=== PATIENT | female | born 1985 | race Caucasian/White ===

== ENCOUNTER 2017-03-29 14:15 | Inpatient (IN) | payer OTHER ==
[2017-03-29 15:57] VITALS: BMI 23.5
--- NOTE | 2017-03-29 17:22 | HP ---
COWS - Scale Resting Pulse: 1= [place] 81-100 Sweatin= Chills/Flushing Restless Observation: 3= Extraneous Movement Pupil Size: 0= Normal to Room Light Bone or Joint Aches: 2= Severe Diffuse Aches Runny Nose/ Eye Tearin= Runny Nose/Eyes GI Upset > 30mins: 1= Stomach Cramp Tremor Observation: 2= Slight Tremor Visible Yawning Observation: 0= None Anxiety or Irritability: 2=Irritable/Anxious Goose Flesh Skin: 0=Smooth Skin COWS Score: 14 Admission [facility] - HPI Chief Complaint: WITHDRAWAL SX Allergies/Adverse Reactions: Allergies Allergy/AdvReac Type Severity Reaction Status Date / Time No Known Allergies Allergy Verified 03/29/17 17:18 History of Present Illness: 31 YEARS OLD FEMALE WITH LONG HISTORY OF OPIUM NICOTINE DEPENDENCE HAS DEPRESSION IS ADMITTED TO DETOX Exam Limitations: No Limitations - Ebola screening Have you traveled outside of the country in the last 21 days: No Have you had contact with anyone from an Ebola affected area: No Have you been sick,other than usual withdrawal symptoms: No Do you have a fever: No - Review of Systems Constitutional: Changes in sleep, Weight Stable EENT: reports: No Symptoms Reported Respiratory: reports: No Symptoms reported Cardiac: reports: No Symptoms Reported GI: reports: Poor Fluid Intake, Abdominal cramping : reports: No Symptoms Reported Musculoskeletal: reports: Back Pain, Joint Pain, Muscle Pain, Neck Pain Integumentary: reports: Change in Color (IV HEROIN BOTH ARMS), Dryness Neuro: reports: Tremors Endocrine: reports: No Symptoms Reported Hematology: reports: No Symptoms Reported Psychiatric: reports: Judgement Intact, Orientated x3, Depressed Other Systems: Reviewed and Negative Patient History - Patient Medical History Hx Anemia: No Hx Asthma: No Hx Chronic Obstructive Pulmonary Disease (COPD): No Hx Cancer: No Hx Cardiac Disorders: No Hx Congestive Heart Failure: No Hx Hypertension: No Hx Hypercholesterolemia: No Hx Pacemaker: No HX Cerebrovascular Accident: No Hx Seizures: No Hx Dementia: No Hx Diabetes: No Hx Gastrointestinal Disorders: No Hx Liver Disease: No Hx Genitourinary Disorders: No Hx Sexually Transmitted Disorders: No Hx Renal Disease (ESRD): No Hx Thyroid Disease: No Hx Human Immunodeficiency Virus (HIV): No Hx Hepatitis C: No Hx Depression: Yes Hx Suicide Attempt: No Hx Bipolar Disorder: No Hx Schizophrenia: No - Patient Surgical History Past Surgical History: No - PPD History Previous Implant?: Yes Documented Results: Negative w/o proof Implanted On Prior [facility] Admission?: No PPD to be Administered?: Yes - Reproductive History Patient is a Female of Child Bearing Age (11 -55 yrs old): Yes Last Menstrual Period: 03/15/17 Patient : No - Smoking Cessation Smoking history: Current every day smoker Have you smoked in the past 12 months: Yes Aproximately how many cigarettes per day: 10 Cigars Per Day: 0 Hx Chewing Tobacco Use: No Initiated information on smoking cessation: Yes 'Breaking Loose' booklet given: 03/29/17 - Substance & Tx. History Hx Alcohol Use: No Hx Substance Use: Yes Substance Use Type: Heroin, Marijuana Hx Substance Use Treatment: Yes (01/2017 [facility]) - Substances Abused Heroin Route: Injection Frequency: Daily Amount used: 20 BAGS Age of first use: 13 Date of Last Use: 03/28/17 Marijuana/Hashish Route: Smoking Frequency: 1-2 times per week Amount used: 1 JOINT Age of first use: 11 Date of Last Use: 03/28/17 Family Disease History - Family Disease History Family History: Unremarkable Family Disease History: Other: Brother (NO BROTHER) Admission Physical Exam S - Vital Signs Vital Signs: Vital Signs - 24 hr 03/29/17 15:50 Temperature 98.4 F Pulse Rate 90 Respiratory 18 Rate Blood Pressure 114/78 - Physical General Appearance: Yes: Appropriately Dressed, Mild Distress, Thin, Tremorous, Irritable, Sweating, Anxious HEENTM: Yes: Hearing grossly Normal, Normal ENT Inspection, Normocephalic, Normal Voice Respiratory: Yes: Chest Non-Tender, No Respiratory Distress, No Accessory Muscle Use, Hyperresonant (RIGHT LOWER), Inspiration Neck: Yes: Supple, Trachea in good position Breast: Yes: Breasts Symetrical Cardiology: Yes: Regular Rhythm, S1, S2, Tachycardia Abdominal: Yes: Normal Bowel Sounds, Non Tender, Soft Genitourinary: Yes: Within Normal Limits Back: Yes: Normal Inspection Musculoskeletal: Yes: full range of Motion, Gait Steady, Back pain, Muscle Pain Extremities: Yes: Normal Range of Motion, Non-Tender, Tremors Neurological: Yes: Fully Oriented, Alert, Motor Strength 5/5, Normal Response, Depressed Affect Integumentary: Yes: Warm, Track Law Lymphatic: Yes: Within Normal Limits - Diagnostic (1) Opioid dependence with withdrawal Current Visit: Yes Status: Acute (2) Cannabis dependence, uncomplicated Current Visit: Yes Status: Chronic (3) Nicotine dependence Current Visit: Yes Status: Acute Qualifiers: Nicotine product type: cigarettes Substance use status: in withdrawal Qualified Code(s): F17.213 - Nicotine dependence, cigarettes, with withdrawal (4) Depression (emotion) Current Visit: Yes Status: Suspected Qualifiers: Depression Type: dysthymia Qualified Code(s): F34.1 - Dysthymic disorder Cleared for Admission [facility] - Detox or Rehab [facility] Level of Care: Medically Managed Detox Regimen/Protocol: Methadone [facility] Breath Alcohol Content Breath Alcohol Content: 0 Urine Pregancy Test - Result Urine Test Results: Negative- NO Line Present Urine Drug Screen - Results Drug Screen Negative: No Urine Drug Screen Results: THC-Marijuana, OPI-Opiates
[2017-03-29] MEDS ORDERED: P-EPHED 60MG/TRIPROLIDI 2.5MG TABLET PO PRN (17:26)
[2017-03-29] MEDS ORDERED: IBUPROFEN 400 MG TABLET (FP) PO PRN (17:26)
[2017-03-29] MEDS ORDERED: NICOTINE POLACRILEX 2 MG GUM BC PRN (17:26)
[2017-03-29] MEDS ORDERED: guaiFENesin/D-METHORPHAN HB 10 ML UNIT-DOSE CUPS PO PRN (17:26)
[2017-03-29] MEDS ORDERED: MAG HYDROX/AL HYDROX/SIMETH 30 ML UNIT-DOSE CUP PO PRN (17:26)
[2017-03-29] MEDS ORDERED: ACETAMINOPHEN 325 MG TABLET (FP) PO PRN (17:26)
[2017-03-29] MEDS ORDERED: LOPERAMIDE HCL 2 MG CAPSULE PO PRN (17:26)
[2017-03-29] MEDS ORDERED: MENTHOL/PHENOL 1 EACH UD MM PRN (17:26)
[2017-03-29] MEDS ORDERED: MAGNESIUM CITRATE 300 ML BOTTLE PO PRN (17:26)
[2017-03-29] MEDS ORDERED: MAGNESIUM HYDROX 2400MG/30ML ORAL SUSPENSION 30 ML CUP PO PRN (17:26)
--- NOTE | 2017-03-29 17:47 | HP ---
COWS - Scale Resting Pulse: 1= [place] 81-100 Sweatin= Chills/Flushing Restless Observation: 3= Extraneous Movement Pupil Size: 0= Normal to Room Light Bone or Joint Aches: 2= Severe Diffuse Aches Runny Nose/ Eye Tearin= Runny Nose/Eyes GI Upset > 30mins: 1= Stomach Cramp Tremor Observation: 2= Slight Tremor Visible Yawning Observation: 0= None Anxiety or Irritability: 2=Irritable/Anxious Goose Flesh Skin: 0=Smooth Skin COWS Score: 14 CIWA Score - CIWA Score Nausea/Vomitin-Mild Nausea/No Vomiting Muscle Tremors: 4-Moderate,w/Arms Extend Anxiety: 4-Mod. Anxious/Guarded Agitation: 4-Moderately Restless Paroxysmal Sweats: 1-Minimal Palms Moist Orientation: 0-Oriented Tacttile Disturbances: 0-None Auditory Disturbances: 0-None Visual Disturbances: 0-None Headache: 0-None Present CIWA-Ar Total Score: [address] [facility] - HPI Allergies/Adverse Reactions: Allergies Allergy/AdvReac Type Severity Reaction Status Date / Time No Known Allergies Allergy Verified 03/29/17 17:18 - Ebola screening Have you traveled outside of the country in the last 21 days: No Have you had contact with anyone from an Ebola affected area: No Have you been sick,other than usual withdrawal symptoms: No Do you have a fever: No Patient History - Patient Medical History Hx Anemia: No Hx Asthma: No Hx Chronic Obstructive Pulmonary Disease (COPD): No Hx Cancer: No Hx Cardiac Disorders: No Hx Congestive Heart Failure: No Hx Hypertension: No Hx Hypercholesterolemia: No Hx Pacemaker: No HX Cerebrovascular Accident: No Hx Seizures: No Hx Dementia: No Hx Diabetes: No Hx Gastrointestinal Disorders: No Hx Liver Disease: No Hx Genitourinary Disorders: No Hx Sexually Transmitted Disorders: No Hx Renal Disease (ESRD): No Hx Thyroid Disease: No Hx Human Immunodeficiency Virus (HIV): No Hx Hepatitis C: No Hx Depression: Yes Hx Suicide Attempt: No Hx Bipolar Disorder: No Hx Schizophrenia: No - Patient Surgical History Past Surgical History: No - PPD History Previous Implant?: Yes Documented Results: Negative w/o proof Implanted On Prior [facility] Admission?: No - Reproductive History Last Menstrual Period: 03/15/17 Patient : No - Smoking Cessation Smoking history: Current every day smoker Have you smoked in the past 12 months: Yes Aproximately how many cigarettes per day: 10 Cigars Per Day: 0 Hx Chewing Tobacco Use: No Initiated information on smoking cessation: Yes 'Breaking Loose' booklet given: 03/29/17 - Substances Abused Heroin Route: Injection Frequency: Daily Amount used: 20 BAGS Age of first use: 13 Date of Last Use: 03/28/17 Marijuana/Hashish Route: Smoking Frequency: 1-2 times per week Amount used: 1 JOINT Age of first use: 11 Date of Last Use: 03/28/17 Alcohol Route: Oral Frequency: Daily Amount used: 6pk beer/ 1 bottle of wine Date of Last Use: 03/29/17 Family Disease History - Family Disease History Family Disease History: Other: Brother (NO BROTHER) Admission Physical Exam [facility] - Vital Signs Vital Signs: Vital Signs - 24 hr 03/29/17 15:50 Temperature 98.4 F Pulse Rate 90 Respiratory 18 Rate Blood Pressure 114/78 - Diagnostic (1) Opioid dependence with withdrawal Current Visit: Yes Status: Acute (2) Cannabis dependence, uncomplicated Current Visit: Yes Status: Chronic (3) Nicotine dependence Current Visit: Yes Status: Acute Qualifiers: Nicotine product type: cigarettes Substance use status: in withdrawal Qualified Code(s): F17.213 - Nicotine dependence, cigarettes, with withdrawal (4) Depression (emotion) Current Visit: Yes Status: Suspected Qualifiers: Depression Type: dysthymia Qualified Code(s): F34.1 - Dysthymic disorder Cleared for Admission [facility] - Detox or Rehab [facility] Level of Care: Medically Managed Detox Regimen/Protocol: Methadone/Valium [facility] Breath Alcohol Content Breath Alcohol Content: 0 Urine Pregancy Test - Result Urine Test Results: Negative- NO Line Present Urine Drug Screen - Results Drug Screen Negative: No Urine Drug Screen Results: THC-Marijuana, OPI-Opiates
[2017-03-29] MEDS ORDERED: BACITRACIN 0.9 GM PACKET TP ONE (18:15)
[2017-03-29] MEDS ORDERED: diazePAM 5 MG TABLET PO ONE (18:15)
[2017-03-29] MEDS ORDERED: METHADONE HCL 10 MG TABLET (FOR DETOX USE ONLY) PO ONE ×2 (18:15→23:00)
[2017-03-29] MEDS: THIAMINE HCL 100 MG TABLET (FP) PO SCH (22:24)
[2017-03-29] MEDS: GABAPENTIN 100 MG CAPSULE (FP) PO PRN (22:24)
[2017-03-29] MEDS: diazePAM 5 MG TABLET PO SCH (22:24)
[2017-03-29] MEDS: BACLOFEN 10 MG TABLET (FP) PO PRN (22:24)
[2017-03-30 01:58] LABS: URINE APPEARANCE SLCLOUDY; URINE BILIRUBIN NEGATIVE (NEGATIVE); URINE BLOOD 2+ (NEGATIVE); URINE COLOR YELLOW; URINE GLUCOSE (UA) NEGATIVE (NEGATIVE); URINE KETONE NEGATIVE (NEGATIVE); URINE NITRITE NEGATIVE (NEGATIVE); URINE PROTEIN NEGATIVE (NEGATIVE); URINE UROBILINOGEN NEGATIVE mg/dL (0.2-1.0)
[2017-03-30 02:15] LABS: URINE BACTERIA RARE /hpf (NONE SEEN); URINE MUCUS RARE; URINE RBC 14 /hpf (0-3); URINE WBC 14 /hpf (3-5)
[2017-03-30] MEDS: diazePAM 5 MG TABLET PO SCH ×3 (05:27→22:22)
[2017-03-30 09:58] LABS: MCH 29.4 pg (25.7-33.7); MCHC 33.7 g/dl (32.0-36.0); MEAN CELL VOLUME 87.3 fl (80-96); MEAN PLT VOLUME 8.3 fl (7.5-11.1); PLATELET COUNT 233 K/MM3 (134-434); RDW 13.3 % (11.6-15.6); WHITE BLOOD COUNT 6.9 K/mm3 (4.0-10.0)
[2017-03-30] MEDS ORDERED: METHADONE HCL 10 MG TABLET (FOR DETOX USE ONLY) PO ONE (10:00)
[2017-03-30] MEDS: PRENATAL VITAMINS W/ FOLIC ACID TABLET (FP) PO SCH (10:33)
[2017-03-30] MEDS: diazePAM 5 MG TABLET PO PRN ×2 (10:34→19:09)
[2017-03-30] MEDS: NICOTINE 14 MG/24 HOURS TOPICAL PATCH TD SCH (10:35)
[2017-03-30 10:51] LABS: ALBUMIN 3.3 g/dl (3.4-5.0); ALK PHOS 53 U/L (45-117); ANION GAP 6 (8-16); BILIRUBIN,TOTAL 0.8 mg/dL (0.2-1.0); CALCIUM 8.2 mg/dL (8.5-10.1); CO2 28 mmol/L (21-32); CREATININE 0.7 mg/dL (0.55-1.02); GLUCOSE,RANDOM 98 mg/dL (74-106); SGOT/AST 14 U/L (15-37); SGPT/ALT 27 U/L (12-78); TOT PROT 6.2 g/dl (6.4-8.2)
[2017-03-30 11:28] LABS: URINE LEUK ESTERASE 1+ (NEGATIVE)
[2017-03-30] MEDS ORDERED: FLU VACCINE QUAD 60 MCG/0.5 ML (MDV 17-18) IM ONE (12:00)
[2017-03-30 12:34] LABS: HIV 1 & 2 AB NEGATIVE; HIV 1 AGp24 NEGATIVE
[2017-03-30] MEDS: GABAPENTIN 100 MG CAPSULE (FP) PO PRN ×2 (14:05→22:21)
--- NOTE | 2017-03-30 14:35 | PN ---
S CIWA - CIWA Score Nausea/Vomitin S COWS - Scale Resting Pulse: 0= [place] 80 or Below Sweatin= Chills/Flushing Restless Observation: 3= Extraneous Movement Pupil Size: 1= Pupils >than Normal Bone or Joint Aches: 2= Severe Diffuse Aches Runny Nose/ Eye Tearin= Runny Nose/Eyes GI Upset > 30mins: 2= Nausea/Diarrhea Tremor Observation of Outstretched Hands: 2= Slight Tremor Visible Yawning Observation: 1= 1-2x During Session Anxiety or Irritability: 2=Irritable/Anxious Goose Flesh Skin: 0=Smooth Skin COWS Score: 16 S Progress Note (SOAP) Subjective: alert,irritable,anxious,interrupted sleep,pain in the body and back,tremor Objective: 03/30/17 14:33 Vital Signs Temperature 98.6 F 03/30/17 11:38 Pulse Rate 78 03/30/17 11:38 Respiratory Rate 18 03/30/17 11:38 Blood Pressure 113/69 03/30/17 11:38 O2 Sat by Pulse Oximetry (%) ekg nsr,normal ecg Laboratory Last Values WBC 6.9 K/mm3 (4.0-10.0) 03/30/17 07:45 RBC 4.29 M/mm3 (3.60-5.2) 03/30/17 07:45 Hgb 12.6 GM/dL (10.7-15.3) 03/30/17 07:45 Hct 37.5 % (32.4-45.2) 03/30/17 07:45 MCV 87.3 fl (80-96) 03/30/17 07:45 MCH 29.4 pg (25.7-33.7) 03/30/17 07:45 MCHC 33.7 g/dl (32.0-36.0) 03/30/17 07:45 RDW 13.3 % (11.6-15.6) 03/30/17 07:45 Plt Count 233 K/MM3 (134-434) 03/30/17 07:45 MPV 8.3 fl (7.5-11.1) 03/30/17 07:45 Manual Slide Review No Result Required. 03/30/17 07:45 Sodium 142 mmol/L (136-145) 03/30/17 07:45 Potassium 4.0 mmol/L (3.5-5.1) 03/30/17 07:45 Chloride 108 mmol/L (98-107) H 03/30/17 07:45 Carbon Dioxide 28 mmol/L (21-32) 03/30/17 07:45 Anion Gap 6 (8-16) L 03/30/17 07:45 BUN 11 mg/dL (7-18) 03/30/17 07:45 Creatinine 0.7 mg/dL (0.55-1.02) 03/30/17 07:45 Creat Clearance w eGFR > 60 (>60) 03/30/17 07:45 Random Glucose 98 mg/dL (74-106) 03/30/17 07:45 Calcium 8.2 mg/dL (8.5-10.1) L 03/30/17 07:45 Total Bilirubin 0.8 mg/dL (0.2-1.0) 03/30/17 07:45 AST 14 U/L (15-37) L 03/30/17 07:45 ALT 27 U/L (12-78) 03/30/17 07:45 Alkaline Phosphatase 53 U/L (45-117) 03/30/17 07:45 Total Protein 6.2 g/dl (6.4-8.2) L 03/30/17 07:45 Albumin 3.3 g/dl (3.4-5.0) L 03/30/17 07:45 Urine Color Yellow 03/29/17 21:56 Urine Appearance Slcloudy 03/29/17 21:56 Urine pH 5.0 (5.0-8.0) 03/29/17 21:56 Ur Specific [place] 1.016 (1.001-1.035) 03/29/17 21:56 Urine Protein Negative (NEGATIVE) 03/29/17 21:56 Urine Glucose (UA) Negative (NEGATIVE) 03/29/17 21:56 Urine Ketones Negative (NEGATIVE) 03/29/17 21:56 Urine Blood 2+ (NEGATIVE) H 03/29/17 21:56 Urine Nitrite Negative (NEGATIVE) 03/29/17 21:56 Urine Bilirubin Negative (NEGATIVE) 03/29/17 21:56 Urine Urobilinogen Negative mg/dL (0.2-1.0) 03/29/17 21:56 Ur Leukocyte Esterase 1+ (NEGATIVE) H 03/29/17 21:56 Urine WBC (Auto) 14 /hpf (3-5) 03/29/17 21:56 Urine RBC (Auto) 14 /hpf (0-3) 03/29/17 21:56 Ur Epithelial Cells Moderate /HPF (FEW) 03/29/17 21:56 Urine Bacteria Rare /hpf (NONE SEEN) 03/29/17 21:56 Urine Mucus Rare 03/29/17 21:56 RPR Titer Nonreactive (NONREACTIVE) 03/30/17 07:45 HIV 1&2 Antibody Screen Negative 03/30/17 07:45 HIV P24 Antigen Negative 03/30/17 07:45 Assessment: 03/30/17 14:34 withdrawal symptom Plan: continue detox,repeat ua
--- NOTE | 2017-03-30 14:38 | CONSULT ---
[facility] Psychiatric Consult - Data Date of interview: 03/30/17 Admission source: [facility] Identifying data: Readmission to [facility] for this 31 y/o Caucasiuan female seeking detox treatment on for heroin and cannabis dependence.Patient is single,a mother of one,domiciled,unemployed and supported on food stamps. Substance Abuse History: Confirmed by patient in this session.See [facility] report for details : Smoking history: Current every day smoker. Have you smoked in the past 12 months: Yes. Aproximately how many cigarettes per day: 10. Cigars Per Day: 0. Hx Chewing Tobacco Use: No. Initiated information on smoking cessation: Yes. 'Breaking Loose' booklet given: 03/29/17. - Substance & Tx. History. Hx Alcohol Use: No. Hx Substance Use: Yes. Substance Use Type: Heroin, Marijuana. Hx Substance Use Treatment: Yes (01/2017 [facility]). - Substances Abused. Heroin. Route: Injection. Frequency: Daily. Amount used: 20 BAGS. Age of first use: 13. Date of Last Use: 03/28/17. Marijuana /Hashish. Route: Smoking. Frequency: 1-2 times per week. Amount used: 1 JOINT. Age of first use: 11. Date of Last Use: 03/28/17 Medical History: Patient endorses good general health. Psychiatric History: No history of psychiatric hospitalizations.Patient admits to the diagnosis of MDD and treatment with prozac 60 mg/day.Sees a psychiatrist at [facility] in [facility].Last took her medication two days ago as per self- report.No reported history of suicide attempts. Physical/Sexual Abuse/Trauma History: Patient denies history of abuse. Additional Comment: Urine Drug Screen Results: THC-Marijuana, OPI-Opiates.Noted. Mental Status Exam - Mental Status Exam Alert and Oriented to: Time, Place, Person Cognitive Function: Good Patient Appearance: Well Groomed Mood: Hopeful, Euthymic Affect: Appropriate, Normal Range Patient Behavior: Appropriate, Cooperative Speech Pattern: Clear Voice Loudness: Normal Thought Process: Intact, Goal Oriented Thought Disorder: Not Present Hallucinations: Denies Suicidal Ideation: Denies Homicidal Ideation: Denies Insight/Judgement: Poor Sleep: Well Appetite: Good Muscle strength/Tone: Normal Gait/Station: Normal Psychiatric Findings - Problem List ([place] 1, 2,3) (1) Opioid dependence with withdrawal Current Visit: Yes Status: Acute (2) Cannabis dependence, uncomplicated Current Visit: Yes Status: Acute (3) Nicotine dependence Current Visit: Yes Status: Acute Qualifiers: Nicotine product type: cigarettes Substance use status: in withdrawal Qualified Code(s): F17.213 - Nicotine dependence, cigarettes, with withdrawal (4) MDD (major depressive disorder) Current Visit: Yes Status: Chronic Comment: Self-report.On Prozac.On going OPD care. - Initial Treatment Plan Initial Treatment Plan: Psychoeducation.Detoxification.Support.Prozac 60 mg po daily.Side effects/benefits are discussed with the patient.Ms Andres is in agreement with plan of care.[facility]. Observation.
[2017-03-30] MEDS: BACITRACIN 0.9 GM PACKET TP SCH ×2 (15:34→22:22)
[2017-03-30] MEDS: THIAMINE HCL 100 MG TABLET (FP) PO SCH (22:21)
[2017-03-30] MEDS: BACLOFEN 10 MG TABLET (FP) PO PRN (22:21)
[2017-03-31] MEDS ORDERED: METHADONE HCL 5 MG TABLET (FOR DETOX USE ONLY) PO ONE (10:00)
[2017-03-31 10:14] LABS: URINE APPEARANCE SLCLOUDY; URINE BILIRUBIN NEGATIVE (NEGATIVE); URINE BLOOD NEGATIVE (NEGATIVE); URINE COLOR LTYELLOW; URINE GLUCOSE (UA) NEGATIVE (NEGATIVE); URINE KETONE NEGATIVE (NEGATIVE); URINE NITRITE NEGATIVE (NEGATIVE); URINE PROTEIN NEGATIVE (NEGATIVE); URINE UROBILINOGEN NEGATIVE mg/dL (0.2-1.0)
[2017-03-31] MEDS: BACITRACIN 0.9 GM PACKET TP SCH ×2 (10:40→23:26)
[2017-03-31] MEDS: PRENATAL VITAMINS W/ FOLIC ACID TABLET (FP) PO SCH (10:41)
[2017-03-31] MEDS: FLUoxetine HCL 20 MG CAPSULE (FP) PO SCH (10:41)
[2017-03-31] MEDS: diazePAM 5 MG TABLET PO SCH ×2 (10:41→22:25)
[2017-03-31] MEDS: NICOTINE 14 MG/24 HOURS TOPICAL PATCH TD SCH (10:42)
[2017-03-31] MEDS: BACLOFEN 10 MG TABLET (FP) PO PRN (10:43)
--- NOTE | 2017-03-31 11:01 | PN ---
[facility] COWS - Scale Resting Pulse: 1= [place] 81-100 Sweatin= Chills/Flushing Restless Observation: 3= Extraneous Movement Pupil Size: 1= Pupils >than Normal Bone or Joint Aches: 2= Severe Diffuse Aches Runny Nose/ Eye Tearin= Runny Nose/Eyes GI Upset > 30mins: 2= Nausea/Diarrhea Tremor Observation of Outstretched Hands: 2= Slight Tremor Visible Yawning Observation: 1= 1-2x During Session Anxiety or Irritability: 2=Irritable/Anxious Goose Flesh Skin: 0=Smooth Skin COWS Score: 17 BHS Progress Note (SOAP) Subjective: alert,irritable,anxious,interrupted sleep,tremor,pain in the body Objective: 03/31/17 11:01 Vital Signs Temperature 98.4 F 03/31/17 09:46 Pulse Rate 89 03/31/17 09:46 Respiratory Rate 16 03/31/17 09:46 Blood Pressure 111/65 03/31/17 09:46 O2 Sat by Pulse Oximetry (%) 03/31/17 11:02 Laboratory Results - last 24 hr 03/29/17 03/30/17 03/30/17 21:56 07:45 07:45 Manual Slide Review No Result Required. Urine Color Urine Appearance Urine pH Ur Specific [place] Urine Protein Urine Glucose (UA) Urine Ketones Urine Blood Urine Nitrite Urine Bilirubin Urine Urobilinogen Ur Leukocyte Esterase 1+ H RPR Titer Nonreactive HIV 1&2 Antibody Screen HIV P24 Antigen 03/30/17 03/31/17 07:45 08:40 Manual Slide Review Urine Color Ltyellow Urine Appearance Slcloudy Urine pH 7.0 D Ur Specific [place] 1.012 Urine Protein Negative Urine Glucose (UA) Negative Urine Ketones Negative Urine Blood Negative Urine Nitrite Negative Urine Bilirubin Negative Urine Urobilinogen Negative Ur Leukocyte Esterase RPR Titer HIV 1&2 Antibody Screen Negative HIV P24 Antigen Negative Assessment: 03/31/17 11:03 withdrawal symptom Plan: continue detox
[2017-03-31 11:42] LABS: URINE LEUK ESTERASE Negative (NEGATIVE)
[2017-03-31] MEDS: diazePAM 5 MG TABLET PO PRN (17:20)
[2017-03-31] MEDS: GABAPENTIN 100 MG CAPSULE (FP) PO PRN (19:14)
[2017-03-31] MEDS: THIAMINE HCL 100 MG TABLET (FP) PO SCH (22:25)
[2017-04-01] MEDS ORDERED: METHADONE HCL 5 MG TABLET (FOR DETOX USE ONLY) PO ONE (10:00)
[2017-04-01] MEDS: BACITRACIN 0.9 GM PACKET TP SCH ×2 (10:21→22:42)
[2017-04-01] MEDS: FLUoxetine HCL 20 MG CAPSULE (FP) PO SCH (10:21)
[2017-04-01] MEDS: PRENATAL VITAMINS W/ FOLIC ACID TABLET (FP) PO SCH (10:21)
[2017-04-01] MEDS: diazePAM 5 MG TABLET PO SCH ×2 (10:21→22:43)
[2017-04-01] MEDS: NICOTINE 14 MG/24 HOURS TOPICAL PATCH TD SCH (10:23)
[2017-04-01] MEDS ORDERED: COLLOIDAL OATMEAL 1 BAR EACH TP PRN (11:38)
--- NOTE | 2017-04-01 11:38 | PN ---
[facility] Progress Note (SOAP) Subjective: chills sweats interrupted sleep agitation Objective: 04/01/17 11:37 Vital Signs Temperature 98.4 F 04/01/17 09:40 Pulse Rate 83 04/01/17 09:40 Respiratory Rate 18 04/01/17 09:40 Blood Pressure 99/63 04/01/17 09:40 O2 Sat by Pulse Oximetry (%) aaox3 ambulating no acute distress Assessment: 04/01/17 11:37 withdrawal sx Plan: continue detox increase fluids aveeno soap
[2017-04-01] MEDS: diazePAM 5 MG TABLET PO PRN (14:42)
[2017-04-01] MEDS: THIAMINE HCL 100 MG TABLET (FP) PO SCH (22:44)
--- NOTE | 2017-04-02 01:04 | EKG ---
Test Reason : Blood Pressure : / mmHG Vent. Rate : 066 BPM Atrial Rate : 066 BPM P-R Int : 134 ms QRS Dur : 072 ms QT Int : 398 ms P-R-T Axes : 065 066 047 degrees QTc Int : 417 ms NORMAL SINUS RHYTHM NORMAL ECG NO PREVIOUS ECGS AVAILABLE Confirmed by ANNA ARNOLD MD ([id number]) on 04/02/2017 1:04:23 AM Referred By: Confirmed By:ANNA ARNOLD MD
[2017-04-02] MEDS ORDERED: diazePAM 5 MG TABLET PO SCH (10:00)
[2017-04-02] MEDS ORDERED: METHADONE HCL 10 MG TABLET (FOR DETOX USE ONLY) PO ONE (10:00)
--- NOTE | 2017-04-02 10:40 | PN ---
[facility] Progress Note (SOAP) Subjective: im feeling better anxiety Objective: 04/02/17 10:39 Vital Signs Temperature 97.9 F 04/02/17 06:00 Pulse Rate 67 04/02/17 06:00 Respiratory Rate 18 04/02/17 06:00 Blood Pressure 100/58 04/02/17 06:00 O2 Sat by Pulse Oximetry (%) aaox3 ambulating no acute distress Assessment: 04/02/17 10:39 mild withdrawal sx Plan: continue detox increase fluids d/c in am
[2017-04-02] MEDS: GABAPENTIN 100 MG CAPSULE (FP) PO PRN (10:49)
[2017-04-02] MEDS: PRENATAL VITAMINS W/ FOLIC ACID TABLET (FP) PO SCH (10:49)
[2017-04-02] MEDS: FLUoxetine HCL 20 MG CAPSULE (FP) PO SCH (10:50)
[2017-04-02] MEDS: NICOTINE 14 MG/24 HOURS TOPICAL PATCH TD SCH (10:50)
[2017-04-02] MEDS: BACITRACIN 0.9 GM PACKET TP SCH ×2 (10:50→22:29)
[2017-04-02] MEDS: THIAMINE HCL 100 MG TABLET (FP) PO SCH (22:29)
[2017-04-03] MEDS ORDERED: METHADONE HCL 5 MG TABLET (FOR DETOX USE ONLY) PO ONE (06:00)
[2017-04-03 06:37] VITALS: PULSE 79; TEMP 98.1
[2017-04-03 06:46] VITALS: BP 103/56
--- NOTE | 2017-04-03 09:38 | DS ---
[facility] Detox Discharge Summary Admission Date: 03/29/17 Discharge Date: 04/03/17 - History Present History: Cannabis Dependence, Opioid Dependence - Physical Exam Results Vital Signs: Vital Signs Temperature 98.1 F 04/03/17 06:00 Pulse Rate 79 04/03/17 06:00 Respiratory Rate 18 04/03/17 06:00 Blood Pressure 103/56 04/03/17 06:00 O2 Sat by Pulse Oximetry (%) - Treatment Hospital Course: Detox Protocol Followed, Detoxed Safely, Responded well, Discharged Condition Good, Rehab Referral Accepted - Medication Discharge Medications: Ambulatory Orders Fluoxetine HCl [Prozac -] 60 mg PO DAILY 03/29/17 Fluoxetine HCl [Prozac -] 60 mg PO DAILY #60 capsule 03/30/17 - Diagnosis (1) Cannabis dependence, uncomplicated Current Visit: Yes Status: Chronic (2) Nicotine dependence Current Visit: Yes Status: Chronic Qualifiers: Nicotine product type: cigarettes Substance use status: uncomplicated Qualified Code(s): F17.210 - Nicotine dependence, cigarettes, uncomplicated (3) Opioid dependence with withdrawal Current Visit: Yes Status: Chronic (4) MDD (major depressive disorder) Current Visit: Yes Status: Chronic (5) Depression (emotion) Current Visit: Yes Status: Suspected Qualifiers: Depression Type: dysthymia Qualified Code(s): F34.1 - Dysthymic disorder - AMA Did Patient Leave Against Medical Advice: No
[2017-04-03] MEDS: BACITRACIN 0.9 GM PACKET TP SCH (10:08)
[2017-04-03] MEDS: NICOTINE 14 MG/24 HOURS TOPICAL PATCH TD SCH (10:08)
[2017-04-03] MEDS: PRENATAL VITAMINS W/ FOLIC ACID TABLET (FP) PO SCH (10:09)
[2017-04-03] MEDS: FLUoxetine HCL 20 MG CAPSULE (FP) PO SCH (10:09)
== END 2017-04-03 09:55 | disposition home or self-care (01) | DRG 773 ==
LOC: YASAS 14:15 → Y6N 17:58
PROVIDERS: ADMIT Internal Medicine; ATTEND Internal Medicine
PROC: HZ2ZZZZ Detoxification Services for Substance Abuse Treatment (ICD-10-PCS; principal; 2017-03-29)
DX: F11.23 Opioid dependence with withdrawal (principal); F12.20 Cannabis dependence, uncomplicated; F17.210 Nicotine dependence, cigarettes, uncomplicated; F33.9 Major depressive disorder, recurrent, unspecified; F34.1 Dysthymic disorder
CPT/HCPCS: 36415; 80053; 81003; 81015; 85027; 86593; 87389; 90688; 93005; 93010; J0475

== ENCOUNTER 2018-05-08 09:22 | Emergency (ER) | payer OTHER ==
[2018-05-08 09:34] VITALS: TEMP 98.7; BMI 23.5
[2018-05-08 10:54] VITALS: BP 120/81; PULSE 98
--- NOTE | 2018-05-08 11:22 | PDOC ---
History of Present Illness - General Chief Complaint: Overdose Stated Complaint: OVERDOSE Time Seen by Provider: 05/08/18 10:12 History Source: Patient, Friend (cousin at bedside) Exam Limitations: No Limitations - History of Present Illness Initial Comments: 05/08/18 11:17 Healthy 33-year-old female with history of heroin use with successful rehabilitation in the past last discharged about a year ago now with relapse about 5 weeks ago, has injected heroin 3 times since then, most recent being earlier this morning. She was with a friend, she became unresponsive and EMS was activated and she received Narcan in the field with appropriate responsiveness. She did vomit once after the Narcan, denies any cardiopulmonary complaints, feels fine now. She has history of mild depression and takes Wellbutrin, has no history of suicidality and is clear that this was an accidental overdose and not an attempt to hurt or kill herself. She has never been admitted for psychiatric issues, she has no new stressors. She has been in conversation with a rehabilitation facility in [place], but her cousin who is at bedside has arranged for her to go directly to an inpatient rehabilitation in [place]. The patient has no complaints at this time and would like to go to rehabilitation. Past History - Past Medical History Allergies/Adverse Reactions: Allergies Allergy/AdvReac Type Severity Reaction Status Date / Time No Known Allergies Allergy Verified 05/08/18 09:34 Home Medications: Ambulatory Orders Fluoxetine HCl [Prozac -] 60 mg PO DAILY 03/29/17 Anemia: No Asthma: No Cancer: No Cardiac Disorders: No CVA: No COPD: No CHF: No Dementia: No Diabetes: No GI Disorders: No Disorders: No HTN: No Hypercholesterolemia: No Kidney Stones: No Liver Disease: No Seizures: No Thyroid Disease: No - Reproductive History PID: No - Suicide/Smoking/Psychosocial Hx Smoking History: Current every day smoker Have you smoked in the past 12 months: Yes Number of Cigarettes Smoked Daily: 10 Cigars Per Day: 0 Information on smoking cessation initiated: No 'Breaking Loose' booklet given: 03/29/17 Hx Alcohol Use: No Drug/Substance Use Hx: Yes Substance Use Type: Heroin, Marijuana Hx Substance Use Treatment: Yes Review of Systems - Review of Systems Constitutional: No: Chills, Fever Respiratory: No: Cough, Shortness of Breath, Stridor Cardiac (ROS): No: Chest Pain ABD/GI: Yes: Vomiting. No: Diarrhea, Nausea Neurological: No: Headache All Other Systems: Reviewed and Negative *Physical Exam - Vital Signs Last Vital Signs Temp Pulse Resp BP Pulse Ox 98.7 F 98 H 18 120/81 99 05/08/18 09:30 05/08/18 10:52 05/08/18 10:52 05/08/18 10:52 05/08/18 10:52 - Physical Exam Comments: 05/08/18 11:19 Vital signs normal, heart rate 80 GENERAL: The patient is awake, alert, and fully oriented. HEAD: Normal with no signs of trauma. EYES: PERRL, EOMI, sclera anicteric, conjunctiva clear with no pallor. ENT: oropharynx clear without exudates. Moist mucous membranes. NECK: Normal range of motion, supple without lymphadenopathy, JVD, or masses. LUNGS: Breath sounds equal, clear to auscultation bilaterally. No wheeze/ crackles. Symmetric breath sounds. HEART: Regular rate and rhythm, normal S1 and S2 without murmur or rub. ABDOMEN: Soft/nontender/nondistended. BS wnl. No guarding or rebound. No palpable masses. No hepatosplenomegaly. EXTREMITIES: Normal range of motion, no edema. 2+ distal pulses. No cords, erythema, or tenderness. NEUROLOGICAL: Cranial nerves II through XII grossly intact. Normal speech, normal gait. PSYCH:Initially tearful about what happened and then appropriate and smiling, regretful and cooperative.. SKIN: Warm, Dry, no rashes or lesions noted. No tracking markings, no cellulitis. Moderate Sedation - Procedure Monitoring Vital Signs: Procedure Monitoring Vital Signs Temperature 98.7 F 05/08/18 09:30 Pulse Rate 98 H 05/08/18 10:52 Respiratory Rate 18 05/08/18 10:52 Blood Pressure 120/81 05/08/18 10:52 O2 Sat by Pulse Oximetry (%) 99 05/08/18 10:52 Medical Decision Making - Medical Decision Making 05/08/18 11:21 Healthy 33-year-old female presents with accidental heroin overdose, now status post Narcan and hemodynamically stable without cardiopulmonary findings. No underlying acute psychiatric issues, she has family at bedside and has arranged for inpatient rehabilitation. No indication for emergent medical workup Can proceed directly to inpatient rehabilitation in [place], her cousin will accompany her Understands return criteria *DC/Admit/Observation/Transfer Diagnosis at time of Disposition: Accidental heroin overdose Qualifiers: Encounter type: initial encounter Qualified Code(s): T40.1X1A - Poisoning by heroin, accidental (unintentional), initial encounter - Discharge Dispostion Disposition: HOME Condition at time of disposition: Improved - Referrals Referrals: Rhoda Dillard MD [Staff Physician] - - Patient Instructions Printed Discharge Instructions: DI for Drug Overdose in Adults Additional Instructions: Activity as tolerated. Stay hydrated. Proceed directly to rehabilitation as discussed. If you hit any obstacles, you can return to [facility] for admission to our rehabilitation facility. Continue your medications as previously prescribed by your physician. You should follow up with your primary doctor as needed regarding today's emergency department visit. Return to the emergency department for any new or concerning symptoms, particularly shortness of breath or chest pain, fevers or chills, persistent vomiting. - Post Discharge Activity
== END 2018-05-08 11:31 | disposition home or self-care (01) ==
LOC: JER 09:22
DX: T40.1X1A Poisoning by heroin, accidental (unintentional), initial encounter (principal); F17.210 Nicotine dependence, cigarettes, uncomplicated
CPT/HCPCS: 99282-25